=== PATIENT | female | born 2000 | race Hispanic/Latino ===

== ENCOUNTER 2022-04-08 19:50 | Observation (INO) | payer OTHER ==
[~2022-04-08] VITALS: Ht 170.2 cm; Wt 80.6 kg
[2022-04-08] MEDS ORDERED: NS 1,000 ML IV ONE (20:10)
[2022-04-08] MEDS ORDERED: ISOVUE-370 76% 100ML VIAL As Ordered ONE (20:18)
[2022-04-08 20:40] LABS: BASO % 0.2 % (0.0-1.0); EOS % 0.3 % (0.0-3.0); HEMATOCRIT 38.9 % (36.0-47.0); LYMPH # 1.4 10^3/uL (1.5-5.0); LYMPH % 13.8 % (24.0-44.0); MEAN CORPUSCULAR HEMOGLOBIN 30.4 pg (27.0-33.0); MEAN CORPUSCULAR HGB CONC 33.4 g/dl (32.0-36.5); MEAN CORPUSCULAR VOLUME 90.9 fl (80.0-96.0); MONO # 0.8 10^3/uL (0.0-0.8); MONO % 7.9 % (2.0-8.0); NEUTROPHILS # 7.6 10^3/uL (1.5-8.5); NEUTROPHILS % 77.5 % (36.0-66.0); PLATELET COUNT, AUTOMATED 220 10^3/uL (150-450); RED BLOOD COUNT 4.28 10^6/uL (4.00-5.40); WHITE BLOOD COUNT 9.8 10^3/uL (4.0-10.0)
[2022-04-08 20:51] LABS: INR 0.99; PROTHROMBIN TIME 13.5 SECONDS (12.7-14.5)
[2022-04-08 20:52] LABS: PARTIAL THROMBOPLASTIN TIME 30.7 SECONDS (25.9-37.0)
[2022-04-08 20:57] LABS: HCG, SERUM QUALITATIVE NEGATIVE (NEGATIVE)
[2022-04-08 21:06] LABS: ALBUMIN 3.8 GM/DL (3.2-5.2); ALT/SGPT 25 U/L (12-78); AMYLASE 50 U/L (25-115); BILIRUBIN,DIRECT 0.2 MG/DL (0.0-0.2); BILIRUBIN,TOTAL 0.4 MG/DL (0.2-1.0); BLOOD UREA NITROGEN 17 MG/DL (7-18); CALCIUM LEVEL 8.4 MG/DL (8.5-10.1); CARBON DIOXIDE LEVEL 27 MEQ/L (21-32); CHLORIDE LEVEL 110 MEQ/L (98-107); CREATININE FOR GFR 0.94 MG/DL (0.55-1.30); ETHYL ALCOHOL (ETHANOL) 0.004 % (0.000-0.010); GLUCOSE, FASTING 105 MG/DL (70-100); LIPASE 98 U/L (73-393); POTASSIUM SERUM 3.6 MEQ/L (3.5-5.1); SODIUM LEVEL 142 MEQ/L (136-145); TOTAL PROTEIN 6.5 GM/DL (6.4-8.2)
[2022-04-08 21:23] LABS: MB/CK RELATIVE INDEX 0.11 (< OR =4)
[2022-04-08] MEDS ORDERED: DERMABOND TOPICAL SKIN ADHESIVE TOP ONE (22:45)
[2022-04-08] MEDS ORDERED: NORCO, ANEXSIA 5/325MG TABLET (HYDROcodone/ACETAMINOPHEN) PO ONE (23:10)
[2022-04-08 23:11] LABS: BLOOD UREA NITROGEN 14 MG/DL (7-18); CALCIUM LEVEL 7.9 MG/DL (8.5-10.1); CARBON DIOXIDE LEVEL 23 MEQ/L (21-32); CHLORIDE LEVEL 115 MEQ/L (98-107); CREATININE FOR GFR 0.87 MG/DL (0.55-1.30); GLUCOSE, FASTING 97 MG/DL (70-100); POTASSIUM SERUM 3.8 MEQ/L (3.5-5.1); SODIUM LEVEL 145 MEQ/L (136-145)
[2022-04-08] MEDS ORDERED: HOME MED LIST COMPLETE! XX SCH (23:50)
[2022-04-09] MEDS ORDERED: ONDANSETRON 4MG 2ML VIAL IV PRN (00:40)
[2022-04-09] MEDS ORDERED: MORPHINE 2 MG/ML 1ML VIAL IV PRN (00:40)
[2022-04-09] MEDS ORDERED: ACETAMINOPHEN TAB 650MG DOSE (2X325MG) PO PRN (00:40)
[2022-04-09] MEDS ORDERED: IBUPROFEN 600MG TAB PO PRN (00:40)
[2022-04-09 00:50] LABS: RSV AMPLIFICATION NEGATIVE (NEGATIVE)
[2022-04-09] MEDS: LR 1,000 ML IV SCH ×2 (01:30→10:26)
[2022-04-09 02:46] VITALS: BP 120/53
[2022-04-09 06:00] VITALS: BP 113/56
[2022-04-09] MEDS: NORCO, ANEXSIA 5/325MG TABLET (HYDROcodone/ACETAMINOPHEN) PO PRN ×2 (08:30→16:27)
[2022-04-09 08:52] LABS: ALBUMIN 3.7 GM/DL (3.2-5.2); ALT/SGPT 25 U/L (12-78); BILIRUBIN,TOTAL 0.6 MG/DL (0.2-1.0); BLOOD UREA NITROGEN 10 MG/DL (7-18); CALCIUM LEVEL 8.9 MG/DL (8.5-10.1); CARBON DIOXIDE LEVEL 27 MEQ/L (21-32); CHLORIDE LEVEL 109 MEQ/L (98-107); CREATININE FOR GFR 0.82 MG/DL (0.55-1.30); GLUCOSE, FASTING 89 MG/DL (70-100); SODIUM LEVEL 142 MEQ/L (136-145); TOTAL PROTEIN 6.6 GM/DL (6.4-8.2)
[2022-04-09 10:00] VITALS: BP 112/67
[2022-04-09 14:00] VITALS: BP 114/50
[2022-04-09 18:00] VITALS: BP 98/52
[2022-04-09 21:39] VITALS: BP 107/67
[2022-04-10 02:00] VITALS: BP 107/56
[2022-04-10 05:31] VITALS: BP 112/63
[2022-04-10 10:00] VITALS: BP 110/63
[2022-04-10] MEDS: NORCO, ANEXSIA 5/325MG TABLET (HYDROcodone/ACETAMINOPHEN) PO PRN (11:30)
[2022-04-10] MEDS ORDERED: HYDR-3715 PO (12:15)
[2022-04-10 14:00] VITALS: BP 114/48
== END 2022-04-10 15:34 | disposition home or self-care (01) ==
LOC: M ED 19:50 → M ED INP 04-09 00:39 → ENRESERV 04-09 01:51 → M MSPAV 04-09 02:20
PROVIDERS: ADMIT Surgery; ATTEND Surgery
DX: S01.112A Laceration without foreign body of left eyelid and periocular area, initial encounter (principal); S20.211A Contusion of right front wall of thorax, initial encounter; R79.89 Other specified abnormal findings of blood chemistry; V43.62XA Car passenger injured in collision with other type car in traffic accident, initial encounter; Y92.410 Unspecified street and highway as the place of occurrence of the external cause
CPT/HCPCS: 12011; 36415; 70450; 70486; 71045; 71260; 72125; 80048; 80053; 80076; 82077; 82150; 82550; 82553; 83605; 83690; 84484; 84703; 85025; 85610; 85730; 86850; 86900; 86901; 87631; 93005; 93041; 94760; 96360; 96361; 97161; 99285; G0378; Q9967